=== PATIENT | male | born 1970 | race Caucasian/White ===

== ENCOUNTER 2019-12-14 14:59 | Emergency (ER) | payer OTHER ==
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
[2019-12-14 15:22] VITALS: BP 133/90; PULSE 75; TEMP 98.9; BMI 30.1
== END 2019-12-14 16:53 | disposition home or self-care (01) ==
LOC: FER 14:59
DX: S60.222A Contusion of left hand, initial encounter (principal); S63.622A Sprain of interphalangeal joint of left thumb, initial encounter
CPT/HCPCS: 73110-TC-LT-FY; 73130-TC-LT-FY; 99284-25